=== PATIENT | female | born 1990 | race Two or more races ===

== ENCOUNTER 2016-12-28 19:56 | Emergency (ER) | payer MEDICAID ==
[~2016-12-28] VITALS: Ht 160 cm; Wt 70.3 kg
[~2016-12-28 19:56] MED LIST: ALBU8.5H2 INH
[2016-12-28 19:58] VITALS: BP 125/81
[2016-12-28 20:34] LABS: APPEARANCE,URINE Clear (CLEAR); BILIRUBIN,URINE Negative (NEGATIVE); BLOOD, URINE Small Ery/uL (NEGATIVE); COLOR,URINE Yellow (YELLOW); KETONES,URINE 15 (NEGATIVE); LEUKOCYTE ESTERASE ,URINE Negative (NEGATIVE); NITRITE, URINE Negative (NEGATIVE); PH,URINE 5.5 (5.0-8.0); PROTEIN,URINE Negative (NEGATIVE); UGLUCOSE Negative (NEGATIVE); UROBILINOGEN,URINE 0.2 EU/dL (0.2)
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
[2016-12-28 21:02] LABS: BACTERIA,URINE Few /HPF (None Seen); SQUAMOUS EPITHELIAL CELL,UR Few /HPF (None Seen); URINE AMORPHOUS URATE Few /HPF (None Seen)
== END 2016-12-28 21:21 | disposition home or self-care (01) ==
LOC: ER 20:05
DX: M54.5 Low back pain (principal); J45.909 Unspecified asthma, uncomplicated
CPT/HCPCS: 81001; 84703; 99283; A4606; Z7610; 81000-TC

== ENCOUNTER 2018-03-02 21:44 | Emergency (ER) | payer MEDICAID ==
[~2018-03-02 21:44] MED LIST changes: -ALBU8.5H2 INH; +ALBU8.5H8 INH
== END 2018-03-02 22:05 | disposition home or self-care (01) ==
LOC: ER 21:48
DX: Z53.21 Procedure and treatment not carried out due to patient leaving prior to being seen by health care provider (principal)

== ENCOUNTER 2020-02-12 14:10 | Emergency (ER) | payer MEDICAID ==
[~2020-02-12] VITALS: Ht 160 cm; Wt 83.9 kg
[2020-02-12 14:13] VITALS: BP 124/71
[2020-02-12] MEDS ORDERED: LIDOCAINE 1% INJ 50 ML MDV IJ ONE (14:30)
[2020-02-12] MEDS ORDERED: LIDOCAINE HCL/MPF 1% 30 ML VIAL IJ ONE (15:43)
== END 2020-02-12 16:57 | disposition home or self-care (01) ==
LOC: ER 14:13
DX: N75.0 Cyst of Bartholin's gland (principal); N75.1 Abscess of Bartholin's gland; J45.909 Unspecified asthma, uncomplicated; Z79.899 Other long term (current) drug therapy
CPT/HCPCS: 56420; 99284; A6407; J3490

== ENCOUNTER 2020-04-13 08:54 | Emergency (ER) | payer MEDICAID ==
[~2020-04-13] VITALS: Ht 160 cm; Wt 77.1 kg
[2020-04-13 09:02] VITALS: BP 127/76
--- NOTE | 2020-04-13 09:08 | NUR ---
SEEN AND EXAMINED BY .
--- NOTE | 2020-04-13 09:15 | NUR ---
Patient discharged to home in stable condition. Written and verbal after care instructions given. Patient verbalizes understanding of instruction.
== END 2020-04-13 09:17 | disposition home or self-care (01) ==
LOC: ER 08:57
DX: H01.006 Unspecified blepharitis left eye, unspecified eyelid (principal); H01.003 Unspecified blepharitis right eye, unspecified eyelid; J45.909 Unspecified asthma, uncomplicated; Z79.899 Other long term (current) drug therapy

== ENCOUNTER 2020-05-04 18:59 | Emergency (ER) | payer MEDICAID ==
--- NOTE | 2020-05-04 19:20 | NUR ---
CALLLED IN ED WAITING ROOM. NO RESPONSE.
--- NOTE | 2020-05-04 19:41 | NUR ---
PT CALLED FOR TRIAGE, NOT IN WAITING ROOM.
--- NOTE | 2020-05-04 19:52 | NUR ---
CALLED TO TRIAGE, PT NOT IN WAITING ROOM.
== END 2020-05-04 19:54 | disposition home or self-care (01) ==
LOC: ER 19:05
DX: Z53.21 Procedure and treatment not carried out due to patient leaving prior to being seen by health care provider (principal)

== ENCOUNTER 2021-09-01 17:17 | Emergency (ER) | payer MEDICAID ==
[~2021-09-01] VITALS: Ht 160 cm; Wt 81.6 kg
[2021-09-01 17:29] VITALS: BP 133/65
[2021-09-01] MEDS ORDERED: IBUP-1955 PO ×2 (17:58→18:18)
[2021-09-01] MEDS ORDERED: CEPH500T PO ×2 (17:58→18:18)
[2021-09-01] MEDS ORDERED: IBUPROFEN 600 MG TABLET PO ONE (18:00)
[2021-09-01] MEDS ORDERED: TDAP [DIPH/PERTUSSIS/TET] 0.5 ML VIAL IM ONE ×2 (18:00→18:06)
[2021-09-01] MEDS ORDERED: IBUPROFEN 600 MG TABLET ONE (18:06)
== END 2021-09-01 18:19 | disposition home or self-care (01) ==
LOC: ER 17:29
DX: N61.1 Abscess of the breast and nipple (principal); J45.909 Unspecified asthma, uncomplicated; Z79.899 Other long term (current) drug therapy
CPT/HCPCS: 90715

== ENCOUNTER 2024-02-15 11:16 | Emergency (ER) | payer MEDICAID ==
[~2024-02-15] VITALS: Ht 160 cm; Wt 86.2 kg
[~2024-02-15 11:16] MED LIST changes: +CEPH500T PO; +IBUP-1955 PO
[2024-02-15 11:24] VITALS: BP 123/87; TEMP 97.9; O2SAT 99
[2024-02-15] MEDS ORDERED: ACETAMINOPHEN ES 500 MG TABLET ONE (12:27)
[2024-02-15] MEDS ORDERED: METOCLOPRAMIDE HCL 10 MG/2 ML VIAL ONE (12:27)
[2024-02-15] MEDS ORDERED: diphenhydrAMINE HCL 50 MG/ML VIAL ONE (12:27)
[2024-02-15] MEDS ORDERED: dexaMETHasone SOD PHOSPHATE 1 ML ONE (12:27)
[2024-02-15] MEDS: diphenhydrAMINE HCL 50 MG/ML VIAL IV ONE (12:30)
[2024-02-15] MEDS: IV NS 0.9% 1,000 ML BAG IV ONE (12:30)
[2024-02-15 12:39] LABS: BASOPHILS # (AUTO) 0.1 K/uL (0.0-0.2); BASOPHILS % (AUTO) 1.5 % (0.0-2.0); EOSINOPHILS # (AUTO) 0.3 K/uL (0.0-0.7); EOSINOPHILS % (AUTO) 3.8 % (0.0-6.0); HEMATOCRIT 42 % (33-45); LYMPHOCYTES # (AUTO) 2.9 K/uL (0.8-4.8); LYMPHOCYTES % (AUTO) 41.1 % (20.0-44.0); MEAN CORPUSCULAR HEMOGLOBIN 29 PG (26.0-33.0); MEAN CORPUSCULAR HGB CONC 34 g/dl (31.0-36.0); MEAN CORPUSCULAR VOLUME 86 fL (82-100); MONOCYTES # (AUTO) 0.5 K/uL (0.1-1.30); MONOCYTES % (AUTO) 6.7 % (2.0-12.0); NEUTROPHILS # (AUTO) 3.4 K/uL (1.8-8.9); NEUTROPHILS % (AUTO) 46.9 % (43.0-81.0); PLATELET COUNT (AUTO) 296 K/uL (150-450); RED BLOOD CELL COUNT(AUTO) 4.84 MIL/uL (4.0-5.2); RED CELL DISTRIBUTION WIDTH 13.6 % (11.5-15.0); WHITE BLOOD COUNT (AUTO) 7.1 K/uL (4.3-11.0)
[2024-02-15] MEDS: dexaMETHasone SOD PHOSPHATE 10 MG/ML VIAL IV ONE (12:40)
[2024-02-15 12:45] LABS: BILIRUBIN,DIRECT 0.1 mg/dL (0.0-0.2); BILIRUBIN,TOTAL 0.4 mg/dL (0.2-1.0); CALCIUM, SERUM 9.1 mg/dL (8.5-10.1); CREATININE 0.6 mg/dL (0.6-1.3); POTASSIUM 4.4 mmol/L (3.5-5.1); TOTAL PROTEIN, SERUM 7.9 g/dL (6.4-8.2)
[2024-02-15] MEDS: METOCLOPRAMIDE HCL 10 MG/2 ML VIAL IV ONE (12:57)
[2024-02-15 13:00] LABS: APPEARANCE,URINE CLEAR (CLEAR); BILIRUBIN,URINE NEGATIVE (NEGATIVE); BLOOD, URINE NEGATIVE Ery/uL (NEGATIVE); COLOR,URINE YELLOW (YELLOW); KETONES,URINE NEGATIVE (NEGATIVE); LEUKOCYTE ESTERASE ,URINE NEGATIVE (NEGATIVE); NITRITE, URINE NEGATIVE (NEGATIVE); PROTEIN,URINE NEGATIVE (NEGATIVE); UGLUCOSE NEGATIVE (NEGATIVE); UROBILINOGEN,URINE 0.2 EU/dL (0.2)
[2024-02-15 13:01] LABS: PREGNANCY TEST URINE QUAL NEGATIVE (NEGATIVE)
[2024-02-15] MEDS: ACETAMINOPHEN ES 500 MG TABLET PO ONE (13:07)
[2024-02-15] MEDS ORDERED: IBUP-1955 PO (13:41)
[2024-02-15] MEDS ORDERED: KETOROLAC TROMETHAMINE 15 MG/ML VIAL IV ONE (14:00)
== END 2024-02-15 13:48 | disposition home or self-care (01) ==
LOC: ER 11:33
DX: R51.9 Headache, unspecified (principal); R42 Dizziness and giddiness; H53.8 Other visual disturbances; R43.9 Unspecified disturbances of smell and taste; R68.83 Chills (without fever); J45.909 Unspecified asthma, uncomplicated; Z79.52 Long term (current) use of systemic steroids
CPT/HCPCS: 99285; 96374; 70450; 96375; 71045; 96361; 93005; 85025; 80048; 80076; 84703; 81003; 36415; 82962; J1100; J1200; J2765; J7030